=== PATIENT | female | born 1960 ===

== ENCOUNTER → 2018-01-19 21:09 | Outpatient (REF) | payer OTHER, SELFPAY ==
[2018-01-19 21:45] LABS: Add Manual Diff / Slide Review NO; Basophils Percent Auto 0.8 % (0-2); Hematocrit 40.8 % (36-46); Hemoglobin 13.5 g/dL (12.0-16.0); Mean Corpuscular HGB Conc 33.2 % (30-36); Mean Corpuscular Hemoglobin 31.9 PG (26-34); Mean Corpuscular Volume 96.1 fL (80-100); Monocytes Percent Auto 5.6 % (3-14); Neutrophils Absolute Auto 5600 /uL (3000-5900); Neutrophils Percent Auto 69.6 % (50-75); Platelet Count 293 X10^3/uL (150-400); Red Blood Cell Count 4.24 X10^6/uL (4.0-5.2); Red Cell Distribution Width 13.8 % (11.6-14.8)
[2018-01-19 21:52] LABS: Alanine Aminotransferase 31 IU/L (9-52); Albumin 4.5 g/dL (3.5-5.0); Albumin Globulin Ratio 1.5 (1.0-2.8); Alkaline Phosphatase 69 U/L (38-126); Aspartate Aminotransferase 24 IU/L (14-36); BUN Creatinine Ratio 22.1 (6-22); Bilirubin Total 0.3 mg/dL (0.2-1.3); Blood Urea Nitrogen 31 mg/dL (7-17); Calcium 9.4 mg/dL (8.4-10.2); Carbon Dioxide 26 mmol/L (22-32); Chloride 105 mmol/L (98-107); Estimated Glomerular Filt Rate 38.9 mL/min (>60); Globulin 3.1 g/dL (1.7-4.1); Glucose 140 mg/dL (70-100); HEMOLYSIS < 15 (0-50); Sodium 145 mmol/L (137-145); Total Protein 7.6 g/dL (6.3-8.2)
[2018-01-19 22:43] LABS: B Type Natriuretic Peptide 96.9 (<100)
[2018-01-22 16:06] LABS: Progesterone < 0.5 ng/mL
[2018-01-28 09:28] LABS: Estrogen 97.3 pg/mL
== END ==
LOC: LAB 21:09
PROVIDERS: Visit Provider Naturopath
DX: R60.9 Edema, unspecified (principal); F90.2 Attention-deficit hyperactivity disorder, combined type; I10 Essential (primary) hypertension; N95.1 Menopausal and female climacteric states; R01.1 Cardiac murmur, unspecified; F43.23 Adjustment disorder with mixed anxiety and depressed mood
CPT/HCPCS: 80053; 82672; 83880; 84144; 85025